=== PATIENT | male | born 1995 | race African-American/Black ===

== ENCOUNTER 2017-07-21 01:11 | Emergency (ER) | payer SELFPAY ==
[~2017-07-21] VITALS: Ht 182.9 cm; Wt 75.0 kg
[2017-07-21 01:15] VITALS: BP 134/73; PULSE 79; RESP 16; TEMP 98; O2SAT 97
--- NOTE | 2017-07-21 02:00 | PD ---
HPI Chief Complaint: Chest Pain Time Seen by Provider: 01:59 Travel History International Travel<30 days: No Contact w/Intl Traveler<30days: No Traveled to known affect area: No History of Present Illness HPI 22-year-old male came to the emergency room with history of chest pain. Patient says it's been going on for 2 years but worse today. Patient says any movement hurts. Especially when he tries to sit up it hurts. No history of fever or chills. No history of cough. Vital signs were stable. No radiation of the pain. Pain is better when he just lays still. Patient is not a smoker. Denies any illicit drug use. No family history of heart attack. [facility] Past Medical History Narrative Medical List of his past medical, surgical, social and family history was reviewed from the nursing note. Medical History: Denies Significant Hx Diminished Hearing: No Immunizations Current: Yes Past Surgical History Surgical History: No Previous Surgery Social History Alcohol Use: No Tobacco Use: No Substance Use: No Allergies-Medications (Allergen,Severity, Reaction): Coded Allergies: Penicillins (Verified Allergy, Severe, Anaphylaxis, 07/21/17) Comments List of her allergies reviewed from the nursing note. Reported Meds & Prescriptions Reported Meds & Active Scripts Active Ibuprofen 600 Mg Tab 600 Mg PO Q6H PRN Narrative Medication Rest of her home medications reviewed from the nursing note. Review of Systems Except as stated in HPI: all other systems reviewed are Neg Cardiovascular: Positive: Chest Pain or Discomfort Physical Exam Narrative GENERAL: Awake, alert, moderate distress SKIN: Focused skin assessment warm/dry. HEAD: Atraumatic. Normocephalic. EYES: Pupils equal and round. No scleral icterus. No injection or drainage. ENT: No nasal bleeding or discharge. Mucous membranes pink and moist. NECK: Trachea midline. No JVD. CARDIOVASCULAR: Regular rate and rhythm. No murmur appreciated. RESPIRATORY: No accessory muscle use. Clear to auscultation. Breath sounds equal bilaterally. Extremely tender on chest palpation GASTROINTESTINAL: Abdomen soft, non-tender, nondistended. Hepatic and splenic margins not palpable. MUSCULOSKELETAL: No obvious deformities. No clubbing. No cyanosis. No edema. NEUROLOGICAL: Awake and alert. No obvious cranial nerve deficits. Motor grossly within normal limits. Normal speech. PSYCHIATRIC: Appropriate mood and affect; insight and judgment normal. Data Data Last Documented VS Orders Orders Ketorolac Inj (Toradol Inj) (07/21/17 02:15) Ed Discharge Order (07/21/17 02:14) Electrocardiogram (07/21/17 01:38) [facility] Medical Decision Making Medical Screen Exam Complete: Yes Emergency Medical Condition: Yes Medical Record Reviewed: Yes Interpretation(s) Twelve-lead EKG was reviewed by me. Normal sinus rhythm, right bundle branch block, normal axis, nonspecific ST-T wave changes. Differential Diagnosis Acute costochondritis, muscular skeletal pain Narrative Course Patient was given IV Toradol. Given the reproducible nature of the pain and negative EKG I'm comfortable discharging him home on NSAID. In my opinion this is costochondritis Procedures EKG Prior to Arrival: Yes Diagnosis Primary Impression: Costochondritis, acute Referrals: Primary Care Physician 2 days Additional Instructions: Take the medication as per the prescription direction. Do not lift heavy weight for next 4-5 days. Warm compress would help. Return to the ER if condition worsens or any other new concerns. Med/Other Pt SpecificInfo: Prescription(s) given Scripts Ibuprofen (Ibuprofen) 600 Mg Tab 600 MG PO Q6H Y for Pain/Inflammation, #40 TAB 0 Refills Prov: Velasquez Powell MD 07/21/17 Disposition: 01 DISCHARGE HOME Condition: Stable Velasquez Powell MD Jul 21, 2017 02:00
[2017-07-21] MEDS ORDERED: IBUP-232 PO (02:07)
[2017-07-21] MEDS ORDERED: KETOROLAC TROMETHAMINE 30 MG/ML (IVP) VIAL IV PUSH ONE (02:15)
--- NOTE | 2017-07-21 18:36 | EKG ---
Date Performed: 07/21/2017 Time Performed: 01:38:32 PTAGE: 22 years EKG: Sinus rhythm INCOMPLETE RIGHT BUNDLE BRANCH BLOCK NONSPECIFIC ST ELEVATION BORDERLINE ECG NO PREVIOUS TRACING DOCTOR: Go Graham Interpretating Date/Time 07/21/2017 18:35:06
== END 2017-07-21 02:46 | disposition home or self-care (01) ==
LOC: NEPC 01:11
DX: M94.0 Chondrocostal junction syndrome [Tietze] (principal); I45.10 Unspecified right bundle-branch block; Z88.0 Allergy status to penicillin
CPT/HCPCS: 93005; 96374; 99284; J1885

== ENCOUNTER 2017-10-06 11:56 | Emergency (ER) | payer SELFPAY ==
[~2017-10-06] VITALS: Ht 182.9 cm; Wt 73.5 kg
[~2017-10-06 11:56] MED LIST: IBUP-232 PO
[2017-10-06 11:57] VITALS: BP 117/57; PULSE 76; RESP 16; TEMP 98.6; O2SAT 99
[2017-10-06 12:41] LABS: AUTOMATED NEUTROPHIL # 2.7 TH/MM3 (1.8-7.7); BASOPHIL % 0.9 % (0.0-2.0); EOSINOPHIL # 0.1 TH/MM3 (0-0.4); EOSINOPHIL % 1.9 % (0.0-4.0); HEMATOCRIT 42.2 % (39.0-51.0); HEMOGLOBIN 14.5 GM/DL (13.0-17.0); LYMPH % 35.9 % (9.0-44.0); LYMPHOCYTE # 1.8 TH/MM3 (1.0-4.8); MEAN CELL VOLUME 89.9 FL (80.0-100.0); MEAN CORPUSCULAR HGB CONC 34.5 % (32.0-36.0); MEAN PLATELET VOLUME 7.8 FL (7.0-11.0); MONO % 9.4 % (0.0-8.0); MONOCYTE # 0.5 TH/MM3 (0-0.9); NEUT % 51.9 % (16.0-70.0); PLATELET COUNT 216 TH/MM3 (150-450); RED BLOOD COUNT 4.69 MIL/MM3 (4.50-5.90); WHITE BLOOD COUNT 5.1 TH/MM3 (4.0-11.0)
[2017-10-06 12:58] LABS: ALT (GPT) 37 U/L (9-52); AST (GOT) 31 U/L (15-39); BICARBONATE 29.6 MEQ/L (21.0-32.0); BLOOD UREA NITROGEN 11 MG/DL (7-18); CALCIUM 9.3 MG/DL (8.5-10.1); CHLORIDE 104 MEQ/L (98-107); CREATININE 0.93 MG/DL (0.60-1.30); GLOMERULAR FILTRATION RATE 126 ML/MIN (>89); GLUCOSE,RANDOM 86 MG/DL (74-106); LIPASE 152 U/L (73-393); SODIUM (NA) 139 MEQ/L (136-145)
[2017-10-06 13:01] LABS: ALKALINE PHOSPHATASE 86 U/L (45-117); TOTAL BILIRUBIN ADULT 0.6 MG/DL (0.2-1.0); TOTAL PROTEIN 7.9 GM/DL (6.4-8.2)
--- NOTE | 2017-10-06 13:08 | RADRPT ---
EXAM DATE/TIME: 10/06/2017 12:37 [place] COMPARISON: No previous studies available for comparison. INDICATIONS : Left upper abdomen pains x3 days. MEDICAL HISTORY : None. SURGICAL HISTORY : None. ENCOUNTER: Initial ACUITY: 3 days PAIN SCORE: 8/10 LOCATION: Left abdomen. FINDINGS: Supine view of the abdomen was performed. The abdominal bowel gas pattern is normal. No abnormal ma sses, calcifications, or organomegaly is seen. The osseous structures are unremarkable. CONCLUSION: No acute disease. Jas Avilez MD on October 06, 2017 at 13:05 Board Certified Radiologist. This report was verified electronically.
--- NOTE | 2017-10-06 13:46 | PD ---
HPI Chief Complaint: Abdominal Pain Time Seen by Provider: 13:46 Travel History International Travel<30 days: No Contact w/Intl Traveler<30days: No Traveled to known affect area: No History of Present Illness HPI Patient is a 22-year-old male presents emergency department with hard stools and blood mixed in with his stool for the past day. Patient states he has not been able to have a bowel movement in the past 3 days. Denies any abdominal pain nausea vomiting diarrhea fevers. Patient states symptoms are mild, associated with blood in stool, for the past 3 days, gradually worsening PFSH Past Medical History Diminished Hearing: No Immunizations Current: Yes Social History Alcohol Use: No Tobacco Use: No Substance Use: No Allergies-Medications (Allergen,Severity, Reaction): Coded Allergies: Penicillins (Verified Allergy, Severe, Anaphylaxis, 10/06/17) Reported Meds & Prescriptions Reported Meds & Active Scripts Active Miralax Powder (Polyethylene Glycol 3350 Powder) 17 Gm Powd 17 Gm PO BID 7 Days Mix and dissolve one measuring cap-ful (17 grams) in water or juice. Review of Systems Except as stated in HPI: all other systems reviewed are Neg Physical Exam Narrative GENERAL: Well-developed well-nourished no obvious distress, quite pleasant. SKIN: Focused skin assessment warm/dry. HEAD: Atraumatic. Normocephalic. EYES: Pupils equal and round. No scleral icterus. No injection or drainage. ENT: No nasal bleeding or discharge. Mucous membranes pink and moist. NECK: Trachea midline. No JVD. CARDIOVASCULAR: Regular rate and rhythm. No murmur appreciated. RESPIRATORY: No accessory muscle use. Clear to auscultation. Breath sounds equal bilaterally. GASTROINTESTINAL: Abdomen soft, non-tender, nondistended. Hepatic and splenic margins not palpable. MUSCULOSKELETAL: No obvious deformities. No clubbing. No cyanosis. No edema. NEUROLOGICAL: Awake and alert. No obvious cranial nerve deficits. Motor grossly within normal limits. Normal speech. PSYCHIATRIC: Appropriate mood and affect; insight and judgment normal. Data Data Last Documented VS Vital Signs Date Time Temp Pulse Resp B/P (MAP) Pulse Ox O2 Delivery O2 Flow Rate FiO2 10/06/17 14:25 10/06/17 11:57 98.6 76 16 99 Room Air Orders Orders Complete Blood Count With Diff (10/06/17 12:01) Comprehensive Metabolic Panel (10/06/17 12:01) Lipase (10/06/17 12:01) Abdomen, Kub Only (10/06/17 12:01) Ed Discharge Order (10/06/17 14:06) Labs Laboratory Tests Test 10/06/17 12:10 White Blood Count 5.1 TH/MM3 Red Blood Count 4.69 MIL/MM3 Hemoglobin 14.5 GM/DL Hematocrit 42.2 % Mean Corpuscular Volume 89.9 FL Mean Corpuscular Hemoglobin 31.0 PG Mean Corpuscular Hemoglobin Concent 34.5 % Red Cell Distribution Width 13.0 % Platelet Count 216 TH/MM3 Mean Platelet Volume 7.8 FL Neutrophils (%) (Auto) 51.9 % Lymphocytes (%) (Auto) 35.9 % Monocytes (%) (Auto) 9.4 % Eosinophils (%) (Auto) 1.9 % Basophils (%) (Auto) 0.9 % Neutrophils # (Auto) 2.7 TH/MM3 Lymphocytes # (Auto) 1.8 TH/MM3 Monocytes # (Auto) 0.5 TH/MM3 Eosinophils # (Auto) 0.1 TH/MM3 Basophils # (Auto) 0.0 TH/MM3 CBC Comment DIFF FINAL Differential Comment Blood Urea Nitrogen 11 MG/DL Creatinine 0.93 MG/DL Random Glucose 86 MG/DL Total Protein 7.9 GM/DL Albumin 4.0 GM/DL Calcium Level 9.3 MG/DL Alkaline Phosphatase 86 U/L Aspartate Amino Transf (AST/SGOT) 31 U/L Alanine Aminotransferase (ALT/SGPT) 37 U/L Total Bilirubin 0.6 MG/DL Sodium Level 139 MEQ/L Potassium Level 4.0 MEQ/L Chloride Level 104 MEQ/L Carbon Dioxide Level 29.6 MEQ/L Anion Gap 5 MEQ/L Estimat Glomerular Filtration Rate 126 ML/MIN Lipase 152 U/L MDM Medical Decision Making Medical Screen Exam Complete: Yes Emergency Medical Condition: Yes Differential Diagnosis Constipation, hematochezia, anemia highly unlikely Narrative Course Patient room to the emergency department, labs reassuring, imaging does show some minimal increased stool, however his sign symptoms suggest hard stools because of his hematochezia. Was offered rectal exam and at this time declined. Hemoglobin 14. Discussed with patient symptomatic management and return to be criteria as well as follow-up with a assurance auditor that the symptoms do not resolve. He is stable for discharge Diagnosis Primary Impression: Hematochezia Additional Impression: Constipation Qualified Codes: K59.00 - Constipation, unspecified Referrals: Cristhian Chandler MD Med/Other Pt SpecificInfo: Prescription(s) given Scripts Polyethylene Glycol 3350 Powder (Miralax Powder) 17 Gm Powd 17 GM PO BID for Constipation for 7 Days, #1 CAN 0 Refills Mix and dissolve one measuring cap-ful (17 grams) in water or juice. Prov: Oleksandr Leach MD 10/06/17 Disposition: 01 DISCHARGE HOME Condition: Stable Oleksandr Leach MD Oct 06, 2017 13:46
[2017-10-06] MEDS ORDERED: MIRA3350 PO (14:06)
== END 2017-10-06 14:26 | disposition home or self-care (01) ==
LOC: NEPD 11:56
DX: K92.1 Melena (principal); K59.00 Constipation, unspecified
CPT/HCPCS: 74018; 80053; 83690; 85025; 99284